=== PATIENT | male | born 1980 | race Caucasian/White ===

== ENCOUNTER 2019-02-07 20:55 | Inpatient (IN) | payer OTHER ==
[~2019-02-07] VITALS: Ht 185.4 cm; Wt 77.8 kg
[2019-02-07] MEDS ORDERED: NORC1TAB7 PO (21:49)
[2019-02-07] MEDS ORDERED: IBUP80TA PO (21:50)
[2019-02-07 21:52] LABS: BASO % 0.2 % (0.0-1.0); EOS # 0.2 10^3/uL (0.0-0.5); HEMATOCRIT 53.1 % (42.0-52.0); LYMPH # 2.4 10^3/uL (1.5-5.0); LYMPH % 13.5 % (24.0-44.0); MEAN CORPUSCULAR HEMOGLOBIN 31.5 pg (27.0-33.0); MEAN CORPUSCULAR HGB CONC 33.9 g/dl (32.0-36.5); MEAN CORPUSCULAR VOLUME 92.8 fl (80.0-96.0); MONO # 1.7 10^3/uL (0.0-0.8); MONO % 9.5 % (0.0-5.0); NEUTROPHILS # 13.6 10^3/uL (1.5-8.5); NEUTROPHILS % 75.2 % (36.0-66.0); PLATELET COUNT, AUTOMATED 316 10^3/uL (150-450); RED BLOOD COUNT 5.72 10^6/uL (4.30-6.10)
--- NOTE | 2019-02-07 22:18 | REPVR ---
PROCEDURE INFORMATION: Exam: XR Abdomen, 1 View Exam date and time: 02/07/2019 9:46 PM Age: 38 years old Clinical history: Other: Constipated. Vomiting; Prior surgery; Surgery date: <1 month; Additional info: No bm since 01/31, n/v TECHNIQUE: Imaging protocol: XR of the abdomen. Views: Frontal supine view of the abdomen. 1 View. COMPARISON: No relevant prior studies available. FINDINGS: Gastrointestinal tract: Minimal gas in the GI tract without abnormal dilatation. Mild stool scattered in the colon. Bones/joints: Unremarkable. Soft tissues: Minimal scattered metallic densities which may reflect ingested items, or foreign bodies or overlying artifact. IMPRESSION: Negative abdomen with minimal gas Electronically signed by: Alex Dean On 02/07/2019 22:18:26 PM
[2019-02-07 22:19] LABS: ALBUMIN 4.7 GM/DL (3.2-5.2); ALT/SGPT 49 U/L (12-78); BILIRUBIN,DIRECT 0.4 MG/DL (0.0-0.2); BLOOD UREA NITROGEN 20 MG/DL (7-18); CARBON DIOXIDE LEVEL 34 MEQ/L (21-32); CHLORIDE LEVEL 93 MEQ/L (98-107); CREATININE FOR GFR 1.02 MG/DL (0.70-1.30); GLOMERULAR FILTRATION RATE > 60.0 (>60); GLUCOSE, FASTING 113 MG/DL (70-100); LIPASE 408 U/L (73-393); POTASSIUM SERUM 3.9 MEQ/L (3.5-5.1); SODIUM LEVEL 134 MEQ/L (136-145); TOTAL PROTEIN 8.9 GM/DL (6.4-8.2)
[2019-02-07] MEDS ORDERED: NS 1,000 ML IV ONE (22:45)
[2019-02-07] MEDS ORDERED: ONDANSETRON 4MG/2ML VIAL (J2405) IV ONE (23:15)
[2019-02-07] MEDS ORDERED: ISOVUE-370 76% 100ML VIAL (Q9967) As Ordered ONE (23:20)
--- NOTE | 2019-02-08 00:17 | REPVR ---
PROCEDURE INFORMATION: Exam: CT Abdomen And Pelvis With Contrast Exam date and time: 02/07/2019 11:27 PM Age: 38 years old Clinical history: Abdominal pain; Generalized; Additional info: Diffuse abdominal pain, n/v, dec flatus TECHNIQUE: Imaging protocol: Computed tomography of the abdomen and pelvis with intravenous contrast. Radiation optimization: All CT scans at this facility use at least one of these dose optimization techniques: automated exposure control; mA and/or kV adjustment per patient size (includes targeted exams where dose is matched to clinical indication); or iterative reconstruction. Contrast material: ISOVUE 370; Contrast volume: 100 ml; Contrast route: IV; COMPARISON: CR Abdomen,Flat Plate KUB 02/07/2019 9:43 PM FINDINGS: Liver: The liver attenuation is 91 Hounsfield units and the spleen is 136 Hounsfield units. Gallbladder and bile ducts: Normal. No calcified stones. No ductal dilation. Pancreas: There is extension of the pancreatic head across the posterior aspect of the duodenal sweep with fluid or edema interposed between the cephalad pancreatic head and the proximal duodenum with some peripancreatic induration which may reflect peripancreatic edema, possibly groove pancreatitis. Spleen: Normal. No splenomegaly. Adrenals: Normal. No mass. Kidneys and ureters: Normal. No hydronephrosis. Stomach and bowel: Metallic density within the lumen of the descending colon consistent with ingested foreign body. Appendix: A normal appendix is seen. Intraperitoneal space: Unremarkable. No free air. No significant fluid collection. Vasculature: Unremarkable. No abdominal aortic aneurysm. Lymph nodes: Unremarkable. No enlarged lymph nodes. Bladder: Unremarkable as visualized. Reproductive: Unremarkable as visualized. Bones/joints: Unremarkable. No acute fracture. Soft tissues: Unremarkable. IMPRESSION: 1. 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 2. Edema or fluid interposed between the proximal duodenal sweep and pancreatic head with some edema around the duodenal sweep suggesting mild pancreatitis of the head, possibly groove pancreatitis. 3. Fatty infiltration of the liver. 4. Ingested metallic foreign body in the descending colon. Electronically signed by: Alex Dean On 02/08/2019 00:17:09 AM
[2019-02-08] MEDS ORDERED: METOCLOPRAMIDE INJ 10MG/2ML VIAL (J2765) IV ONE (00:45)
[2019-02-08 00:56] LABS: AMYLASE 112 U/L (25-115)
[2019-02-08] MEDS ORDERED: ONDANSETRON 4MG/2ML VIAL (J2405) IV PRN (01:30)
--- NOTE | 2019-02-08 01:47 | HPEPDOC ---
General Date of Admission 02/08/19 Date of Service: Feb 08, 2019 Chief Complaint The patient is a 38-year-old male admitted with a reason for visit of Vomiting. Source: Patient Exam Limitations: No limitations Timing/Duration: 24 hours Severity: Moderate Associated Symptoms: Nausea, Vomiting History of Present Illness Patient is 38 years old male without significant past medical history presented hospital with nausea, vomiting and abdominal pain. Patient stated that on 02/01/19 he had 19 teeth extraction for dentures. Also she stated that for past 36 hours history having nausea, vomiting associated with severe abdominal pain, left upper quadrant, 8 out of 10. After teeth extraction patient has been taken ibuprofen, metabolic and Percocet. In emergency room patient was found to have elevated lipase level, abdominal CT showed pancreatic inflammation. Also patient was found to have small foreign body in his bowel. Emergency PA contacted Dr. Gamez. . Home Medications Scheduled Ibuprofen (Ibuprofen) 800 Mg Tablet, 800 MG PO TID, (Reported) Scheduled PRN Hydrocodone/Acetaminophen ([place] 5-325 Tablet) 1 Each Tablet, 2 TAB PO Q6H PRN for pain, (Reported) Allergies Coded Allergies: No Known Allergies (Unverified , 02/07/19) Past Medical History Medical History Leishmaniasis Family History Father had prostate cancer Social History * Smoker: current smoker Alcohol: occationally Drugs: denies A-FIB/CHADSVASC A-FIB History Current/History of A-Fib/PAF?: No Current PO Anticoag Therapy: No Review of Systems Constitutional: Reports: Chills, Malaise, Weakness; Denies: Fever Eyes: Denies: Pain ENT: Denies: Head Aches Skin: Denies: Rash, Lesions Pulmonary: Denies: Cough Cardiovascular: Denies: Chest Pain, Palpitations Gastrointestinal: Reports: Nausea, Vomiting, Abdominal Pain, Constipation Genitourinary: Denies: Dysuria, Frequency Hematologic: Denies: Bruising, Bleeding Excessively Endocrine: Denies: Polydipsia, Polyphagia Musculoskeletal: Denies: Neck Pain, Back Pain Neurological: Denies: Weakness, Numbness Psych: Reports: Mood Normal Physical Examination General Exam: Positive: Alert, Cooperative Eye Exam: Positive: PERRLA ENT Exam: Positive: Mucous membr. moist/pink Neck Exam: Positive: Supple Chest Exam: Positive: Clear to auscultation Heart Exam: Positive: Rate Normal Telemetry: Positive: No significant arrhythmia Abdomen Exam: Positive: Normal bowel sounds Extremity Exam: Negative: Clubbing, Cyanosis Skin Exam: Positive: Nl turgor and temperature Neuro Exam: Positive: Normal Gait, Strength at 5/5 X4 ext, Cranial Nerves 3-12 NL Psych Exam: Positive: Mental status NL Vital Signs Vital Signs Date Time Temp Pulse Resp B/P (MAP) Pulse Ox O2 Delivery O2 Flow Rate FiO2 02/07/19 21:52 02/07/19 20:58 99.5 98 16 95 Room Air Laboratory Data Labs 24H Laboratory Tests 2 02/07/19 21:31: Immature Granulocyte % (Auto) 0.6, Neutrophils (%) (Auto) 75.2H, Lymphocytes (%) (Auto) 13.5L, Monocytes (%) (Auto) 9.5H, Eosinophils (%) (Auto) 1.0, Basophils (%) (Auto) 0.2, Neutrophils # (Auto) 13.6H, Lymphocytes # (Auto) 2.4, Monocytes # (Auto) 1.7H, Eosinophils # (Auto) 0.2, Basophils # (Auto) 0.0, Nucleated Red Blood Cells % (auto) 0.0, Urine Color YELLOW, Urine Appearance CLEAR, Urine pH 5.0, Urine Specific [place] 1.030, Urine Protein 1+H, Urine Glucose (UA) NEGATIVE, Urine Ketones 1+H, Urine Blood 1+H, Urine Nitrite NEGATIVE, Urine Bilirubin NEGATIVE, Urine Urobilinogen 0.2, Urine Leukocyte Esterase NEGATIVE, Urine WBC (Auto) 1, Urine RBC (Auto) 6H, Urine Hyaline Casts (Auto) 0, Urine Bacteria (Auto) 1+H, Urine Squamous Epithelial Cells 0, Urine Mucus (Auto) SMALL, Urine Sperm (Auto) , Anion Gap 7L, Glomerular Filtration Rate > 60.0, Calcium Level 10.0, Total Bilirubin 2.0H, Direct Bilirubin 0.4H, Aspartate Amino Transf (AST/SGOT) 13, Alanine Aminotransferase (ALT/SGPT) 49, Alkaline Phosphatase 94, Total Protein 8.9H, Albumin 4.7, Albumin/Globulin Ratio 1.12, Amylase Level 112, Lipase 408H 02/07/19 23:24: Lactic Acid Level 1.2 CBC/BMP Laboratory Tests 02/07/19 21:31 Microbiology Microbiology 02/07/19 Blood Culture, Received Pending 02/07/19 Blood Culture, Received Pending Assessment/Plan Patient is 38 years old male without significant past medical history presented hospital with nausea, vomiting and abdominal pain. Patient stated that on 02/01/19 he had 19 teeth extraction for dentures. Also she stated that for past 36 hours history having nausea, vomiting associated with severe abdominal pain, left upper quadrant, 8 out of 10. After teeth extraction patient has been taken ibuprofen, metabolic and Percocet. In emergency room patient was found to have elevated lipase level, abdominal CT showed pancreatic inflammation. Problems (1) Pancreatitis Status: Acute Problem Text: Most likely secondary to ibuprofen Aggressive IV fluid Nothing by mouth for now Pain management (2) Nausea & vomiting Status: Acute Problem Text: Zofran IV when necessary (3) Foreign body in colon Status: Acute Problem Text: Most likely particle on the tooth crown Patient had recent 19 teeth extraction No signs of perforation on the CT scan or bowel obstruction Emergency PA contacted Dr. Gamez for consult. Abdomen on palpation soft, no rebound, mildly tender in the left upper quadrant. No acute abdomen Plan / VTE VTE Prophylaxis Ordered?: Yes DANITA CHRISTIANSON DO Feb 08, 2019 01:47
[2019-02-08] MEDS: NS 1,000 ML IV SCH ×3 (02:30→10:28)
[2019-02-08 04:40] VITALS: BP 134/78
[2019-02-08] MEDS: HEPARIN SOD (PORCINE) 5000 UNITS/ML VIAL SC SCH ×2 (09:00→20:25)
[2019-02-08] MEDS: METOCLOPRAMIDE INJ 10MG/2ML VIAL (J2765) IV PRN ×2 (10:27→17:05)
[2019-02-08] MEDS: LR 1,000 ML IV SCH ×3 (11:00→20:24)
--- NOTE | 2019-02-08 11:02 | IPNPDOC ---
Text Note Date of Service The patient was seen on 02/08/19. NOTE Subjective: Patient is seen at bedside, he has continued to have bilious vomiting overnight. He has not been able to eat or drink anything. He has IV fluids running. He states that he feels better than yesterday, and he describes his abdominal pain is more crampy in nature. He did not use any morphine overnight. Zofran does not work for his nausea. Objective: Vitals: see below General: Ill-appearing male, lying in the bed HEENT: Atraumatic, normocephalic. Anicteric sclera. Mucous membranes are moist, patient does not have any teeth Neck: Supple, no JVD Lungs: Clear to auscultation bilaterally; no wheezes, rhonchi, or rales Heart: Regular rate and rhythm; no murmurs, polyps, or rubs Abdomen: Hyperactive bowel sounds in all 4 quadrants, soft, nondistended, mildly uncomfortable to palpation, no masses Extremities: No clubbing cyanosis or edema Skin: Sallow, no rashes, no jaundice Neuro: Moving all extremities freely, muscle strength 5 out of 5 throughout, sensation intact throughout, cranial nerves II through XII grossly intact Psych: Answering questions appropriately, tired Assessment: 38-year-old male on hospital day #2, admitted for acute pancreatitis with unknown etiology. Plan: 1. Acute Pancreatitis. Etiology unknown at this time, upon further discussion it was elicited that the patient was also given steroids by his dentist when his teeth were extracted. Patient has not had alcohol recently, denies history of trauma, no gallstones evident on CT scan nor has he had a recent ERCP. He has no history of malignancy or autoimmune conditions. Calcium within normal limits, will draw lipid profile to assess for hypertriglyceridemia. The admitting phys ician attributed it to ibuprofen usage, however steroid usage may be more likely. We'll continue with IV fluids, patient has a clear liquids diet. We'll advance him slowly and make sure that he can tolerate that before discontinuing IV fluids. Normal saline replaced with lactated Ringer's as evident shows this to be superior to treatment of pancreatitis. 2. Nausea and vomiting. He does not find Zofran to be very beneficial, will try Reglan. Continue IV fluids until able to tolerate by mouth intake. 3. Foreign body in bowel. CT scan reviewed with Dr. Gamez. Likely is a metallic filling from when the patient's teeth were extracted. It is nonobstructing, does not require surgery at this time. Disposition: Pending clinical improvement VS,Megan, I+O VS, Megan, I+O Laboratory Tests 02/07/19 21:31 Vital Signs Date Time Temp Pulse Resp B/P (MAP) Pulse Ox O2 Delivery O2 Flow Rate FiO2 02/08/19 04:40 99.0 77 16 134/78 (96) 98 Room Air I&O- Last 24 Hours up to 6 AM 02/08/19 06:00 Intake Total 1020 ml Output Total 150 ml Balance 870 ml GME ATTESTATION GME ATTESTATION My faculty preceptor for this patient encounter was physically present during th e encounter and was fully available. All aspects of the patient interview, examination, medical decision making process, and medical care plan development were reviewed and approved by the faculty preceptor. The faculty preceptor is aware and concurs with the plan as stated in the body of this note and will attest to such by his/her cosignature. ATTENDING NOTE I have personally evaluated and examined the patient. Discussed with residents and student regarding plan of care and agree with the above assessment and plan. EDGAR GRANT D.O. Feb 08, 2019 11:02 DARRYL PARK MD Feb 08, 2019 13:38
[2019-02-08 11:38] LABS: CHOLESTEROL RISK RATIO 5.625 (<5)
--- NOTE | 2019-02-08 12:35 | CR ---
DATE OF CONSULTATION: 02/08/2019 BRIEF HISTORY OF PRESENT ILLNESS: The patient is a 38-year-old male, who presented with some teeth extraction about a week ago and after being on some steroids for the last day and a half noticed some increasing pressure in his abdomen, nausea, vomiting and severe abdominal pain. He states mostly his discomfort today is really just pressure. He has been on some ibuprofen but also has been on what sounds like was some steroids, probably methylprednisolone, and some Percocet for his discomfort. He had evidence of peripancreatic inflammation and lipase elevation consistent with pancreatitis. He has not had previous pancreatitis. His past medical history is significant for history of leishmaniasis. Medications include ibuprofen and pain medication. Physical exam reveals a 38-year-old male who looks stated age. HEENT is unremarkable. Neck supple without adenopathy. Lungs are clear to auscultation without crackles, wheezes or rhonchi. Heart is regular without murmur. Abdomen is soft, mild discomfort in the epigastric area with palpation but really no guarding, no rebound. No peritoneal signs. Truly no significant impressive abdominal exam at this time. His white count is elevated. His lipase was elevated and evidence of peripancreatic inflammation associated with pancreatitis. IMPRESSION/PLAN: The patient has pancreatitis. I anticipate this is probably medication associated, and unfortunately, these seem to be a little bit slower to resolve from a pancreatitis standpoint anecdotally speaking. Thus, at this point supportive care obviously is the next most important treatment. There is good perfusion to the pancreas and I do not feel it is necrotic pancreatitis and supportive care is reasonable, and as soon as he is not nauseated I would recommend starting him on some clear liquids. From a surgical standpoint, no surgical intervention is necessary. He does have some possible additional pancreatic tissue in the head of the pancreas. At some point in the future once his pancreatitis has resolved, if workup is desired, he can see gastroenterology for this and possibly undergo an MRI, but otherwise from a surgical standpoint no further intervention is necessary. Please contact me if you have any questions or concerns, but otherwise, I will be signing off the patient's chart.
[2019-02-08 14:00] VITALS: BP 130/70
[2019-02-08 22:00] VITALS: BP 117/69
[2019-02-09] MEDS: LR 1,000 ML IV SCH ×4 (00:10→18:06)
[2019-02-09] MEDS: MORPHINE 2 MG/ML 1ML VIAL (J2270) IV PRN ×3 (00:15→21:25)
[2019-02-09] MEDS: METOCLOPRAMIDE INJ 10MG/2ML VIAL (J2765) IV PRN ×3 (03:48→18:32)
[2019-02-09 06:00] VITALS: BP 117/73
[2019-02-09 06:18] LABS: MEAN CORPUSCULAR HEMOGLOBIN 31.9 pg (27.0-33.0); MEAN CORPUSCULAR HGB CONC 34.9 g/dl (32.0-36.5); MEAN CORPUSCULAR VOLUME 91.4 fl (80.0-96.0); PLATELET COUNT, AUTOMATED 219 10^3/uL (150-450); RED BLOOD COUNT 4.05 10^6/uL (4.30-6.10); WHITE BLOOD COUNT 15.1 10^3/uL (4.0-10.0)
[2019-02-09 06:24] LABS: HEMOGLOBIN 12.9 g/dl (13.5-17.5)
[2019-02-09 06:41] LABS: BLOOD UREA NITROGEN 10 MG/DL (7-18); CALCIUM LEVEL 8.1 MG/DL (8.5-10.1); CARBON DIOXIDE LEVEL 26 MEQ/L (21-32); CHLORIDE LEVEL 103 MEQ/L (98-107); CREATININE FOR GFR 0.57 MG/DL (0.70-1.30); GLOMERULAR FILTRATION RATE > 60.0 (>60); GLUCOSE, FASTING 89 MG/DL (70-100); MAGNESIUM LEVEL 1.9 MG/DL (1.8-2.4); POTASSIUM SERUM 3.8 MEQ/L (3.5-5.1); SODIUM LEVEL 137 MEQ/L (136-145); TRIGLYCERIDES LEVEL 103 MG/DL (<150)
[2019-02-09] MEDS: HEPARIN SOD (PORCINE) 5000 UNITS/ML VIAL SC SCH ×2 (08:07→20:55)
--- NOTE | 2019-02-09 08:44 | IPNPDOC ---
Text Note Date of Service The patient was seen on 02/09/19. NOTE Subjective: Patient is seen at bedside, he has continued to 2 episodes of vomiting overnight. He has not been able to eat or drink anything, he would like to try to see if he can tolerate clears this morning. He has IV fluids running. He had to use IV morphine once last night due to his abdominal pain. He is able to urinate without difficulty. Reglan seems to work better than Zofran did for his nausea. Objective: Vitals: see below General: Tired-appearing male, lying in the bed HEENT: Atraumatic, normocephalic. Anicteric sclera. Mucous membranes are moist, patient does not have any teeth Neck: Supple, no JVD Lungs: Clear to auscultation bilaterally; no wheezes, rhonchi, or rales Heart: Regular rate and rhythm; no murmurs, polyps, or rubs Abdomen: Normoactive bowel sounds in all 4 quadrants, soft, nondistended, mildly uncomfortable to palpation in the left upper quadrant, no masses Extremities: No clubbing cyanosis or edema Skin: Sallow, no rashes, no jaundice Neuro: Moving all extremities freely, muscle strength 5 out of 5 throughout, sensation intact throughout, cranial nerves II through XII grossly intact Psych: Answering questions appropriately, tired Assessment: 38-year-old male on hospital day #3, admitted for acute pancreatitis with unknown etiology. Plan: 1. Acute Pancreatitis. Etiology unknown at this time, upon further discussion it was elicited that the patient was also given steroids by his dentist when his teeth were extracted. Patient has not had alcohol recently, denies history of trauma, no gallstones evident on CT scan nor has he had a recent ERCP. He has no history of malignancy or autoimmune conditions. Calcium within normal limits, lipid panel did not show hypertriglyceridemia. Agree with Dr. Gamez that steroid usage may be the most likely etiology, however cannot rule out idiopathic. We'll continue with IV maintenance fluids at 80 mls/hour, patient has a clear liquids diet. We'll advance him slowly and make sure that he can tolerate that before discontinuing IV fluids completely. Normal saline replaced with lactated Ringer's as evident shows this to be superior to treatment of pancreatitis. 2. Nausea and vomiting. Regular working better than Zofran did. Continue IV maintenance fluids until able to tolerate by mouth intake. 3. Foreign body in bowel. CT scan reviewed with Dr. Gamez. Likely is a metallic filling from when the patient's teeth were extracted. It is nonobstructing, does not require surgery at this time. Disposition: Pending clinical improvement, ability to tolerate regular diet VS,Fishbone, I+O VS, Fishbone, I+O Laboratory Tests 02/09/19 05:43 Vital Signs Date Time Temp Pulse Resp B/P (MAP) Pulse Ox O2 Delivery O2 Flow Rate FiO2 02/09/19 06:00 98.2 73 18 117/73 (88) 98 Room Air I&O- Last 24 Hours up to 6 AM 02/09/19 06:00 Intake Total 3000 ml Output Total 250 ml Balance 2750 ml GME ATTESTATION GME ATTESTATION My faculty preceptor for this patient encounter was physically present during the encounter and was fully available. All aspects of the patient interview, examination, medical decision making process, and medical care plan development were reviewed and approved by the faculty preceptor. The faculty preceptor is aware and concurs with the plan as stated in the body of this note and will attest to such by his/her cosignature. ATTENDING NOTE I have personally evaluated and examined the patient. Discussed with residents and student regarding plan of care and agree with the above assessment and plan. EDGAR GRANT D.O. Feb 09, 2019 08:44 DARRYL PARK MD Feb 09, 2019 10:17
[2019-02-09 14:00] VITALS: BP 135/80
[2019-02-09 22:00] VITALS: BP 113/79
[2019-02-10] MEDS: METOCLOPRAMIDE INJ 10MG/2ML VIAL (J2765) IV PRN (00:55)
[2019-02-10] MEDS: LR 1,000 ML IV SCH (05:44)
[2019-02-10 06:00] VITALS: BP 113/82
[2019-02-10] MEDS: HEPARIN SOD (PORCINE) 5000 UNITS/ML VIAL SC SCH ×2 (07:48→21:00)
[2019-02-10] MEDS: MORPHINE 2 MG/ML 1ML VIAL (J2270) IV PRN (08:21)
--- NOTE | 2019-02-10 10:37 | IPNPDOC ---
Text Note Date of Service The patient was seen on 02/10/19. NOTE Subjective: Patient is seen at bedside, no episodes of vomiting overnight. He was been able to tolerate clear liquids yesterday in small amounts, he would like to try to see if he can tolerate full liquids at lunch. He has IV fluids running. He has been using IV morphine sparingly due to his abdominal pain, which continues to radiate to the middle of his back. He is able to urinate without difficulty. Reglan works better than Zofran did for his nausea. Objective: Vitals: see below General: Tired-appearing male, lying in the bed HEENT: Atraumatic, normocephalic. Anicteric sclera. Mucous membranes are moist, patient does not have any teeth Neck: Supple, no JVD Lungs: Clear to auscultation bilaterally; no wheezes, rhonchi, or rales Heart: Regular rate and rhythm; no murmurs, gallops, or rubs Abdomen: Normoactive bowel sounds in all 4 quadrants, soft, nondistended, mildly uncomfortable to palpation in the left upper quadrant, no masses Extremities: No clubbing cyanosis or edema Skin: No rashes, no jaundice Neuro: Moving all extremities freely, muscle strength 5 out of 5 throughout, sensation intact throughout, cranial nerves II through XII grossly intact Psych: Answering questions appropriately, tired Assessment: 38-year-old male on hospital day #4, admitted for acute pancreatitis with unknown etiology. Plan: 1. Acute Pancreatitis. Etiology unknown at this time, upon further discussion it was elicited that the patient was also given steroids by his dentist when his teeth were extracted. Patient has not had alcohol recently, denies history of trauma, no gallstones evident on CT scan nor has he had a recent ERCP. He has no history of malignancy or autoimmune conditions. Calcium within normal limits, lipid panel did not show hypertriglyceridemia. Agree with Dr. Gamez that steroid usage may be the most likely etiology, however cannot rule out idiopathic. We'll continue with IV maintenance fluids at 80 mls/hour, patient has tolerated a clear liquids diet. Will try to advance him to full liquids at lunch. We'll make sure he can tolerate a diet before discontinuing IV fluids completely. Normal saline replaced with lactated Ringer's as evident shows this to be superior to treatment of pancreatitis. He is slowly improving, but may need an extended stay. 2. Nausea and vomiting. Reglan working better than Zofran did. Continue IV maintenance fluids until able to tolerate by mouth intake. 3. Foreign body in bowel. CT scan reviewed with Dr. Gamez. Likely is a metallic filling from when the patient's teeth were extracted. It is nonobstructing, does not require surgery at this time. Disposition: Pending clinical improvement, ability to tolerate regular diet VS,Fishbone, I+O VS, Fishbone, I+O Vital Signs Date Time Temp Pulse Resp B/P (MAP) Pulse Ox O2 Delivery O2 Flow Rate FiO2 02/10/19 08:31 18 02/10/19 06:00 98.8 82 113/82 (92) 97 Room Air I&O- Last 24 Hours up to 6 AM 02/10/19 06:00 Intake Total 3690 ml Output Total 2615 ml Balance 1075 ml GME ATTESTATION GME ATTESTATION My faculty preceptor for this patient encounter was physically present during the encounter and was fully available. All aspects of the patient interview, exa mination, medical decision making process, and medical care plan development were reviewed and approved by the faculty preceptor. The faculty preceptor is aware and concurs with the plan as stated in the body of this note and will attest to such by his/her cosignature. ATTENDING NOTE I have personally evaluated and examined the patient. Discussed with residents and student regarding plan of care and agree with the above assessment and plan. EDGAR GRANT D.O. Feb 10, 2019 10:37 DARRYL PARK MD Feb 10, 2019 14:35
[2019-02-10] MEDS ORDERED: SENNA 8.6 MG TAB (SENOKOT) PO PRN (12:00)
[2019-02-10] MEDS ORDERED: DOCUSATE SODIUM 100 MG CAP PO PRN (12:00)
[2019-02-10 14:00] VITALS: BP 120/88
[2019-02-10 22:00] VITALS: BP 111/78
[2019-02-10] MEDS ORDERED: ACETAMINOPHEN TAB 650MG DOSE (2X325MG) PO PRN (22:00)
[2019-02-11] MEDS: METOCLOPRAMIDE INJ 10MG/2ML VIAL (J2765) IV PRN (00:17)
[2019-02-11 05:59] LABS: HEMATOCRIT 40.3 % (42.0-52.0); HEMOGLOBIN 14.2 g/dl (13.5-17.5); MEAN CORPUSCULAR HEMOGLOBIN 31.7 pg (27.0-33.0); MEAN CORPUSCULAR HGB CONC 35.2 g/dl (32.0-36.5); PLATELET COUNT, AUTOMATED 256 10^3/uL (150-450); RED BLOOD COUNT 4.48 10^6/uL (4.30-6.10); WHITE BLOOD COUNT 13.4 10^3/uL (4.0-10.0)
[2019-02-11 06:00] VITALS: BP 112/70
[2019-02-11 06:27] LABS: ALBUMIN 3.5 GM/DL (3.2-5.2); ALT/SGPT 34 U/L (12-78); BILIRUBIN,TOTAL 1.7 MG/DL (0.2-1.0); BLOOD UREA NITROGEN 8 MG/DL (7-18); CALCIUM LEVEL 9.2 MG/DL (8.5-10.1); CARBON DIOXIDE LEVEL 29 MEQ/L (21-32); CHLORIDE LEVEL 98 MEQ/L (98-107); CREATININE FOR GFR 0.67 MG/DL (0.70-1.30); GLOMERULAR FILTRATION RATE > 60.0 (>60); GLUCOSE, FASTING 92 MG/DL (70-100); POTASSIUM SERUM 3.6 MEQ/L (3.5-5.1); SODIUM LEVEL 136 MEQ/L (136-145); TOTAL PROTEIN 6.5 GM/DL (6.4-8.2)
[2019-02-11] MEDS: HEPARIN SOD (PORCINE) 5000 UNITS/ML VIAL SC SCH (07:52)
--- NOTE | 2019-02-11 11:08 | DSES ---
DATE OF ADMISSION: 02/07/2019 DATE OF DISCHARGE: 02/11/2019 DISCHARGE DIAGNOSIS: 1. Acute pancreatitis. 2. Nausea and vomiting. 3. Foreign body in bowel. CONSULTANTS: Dr. Gamez from general surgery. PROCEDURES: None. HOSPITAL COURSE: This is a 38-year-old male with no real past significant medical history who presented to the hospital on 02/08/2018 with nausea, vomiting, abdominal pain. He stated that on 02/01/2019 he had 19 teeth extracted for dentures due to chronic gingivitis, loose teeth, and rotting of his enamel. When he presented to the emergency department he had been complaining of 36 hours of nausea and vomiting associated with severe abdominal pain in the left upper quadrant and epigastric area which she rated as an 8/10. He has been managing his pain at home with some Motrin and Percocet. In the emergency department he was found to have elevated lipase level and abdominal CT showed pancreatic inflammation as well as a small metallic looking foreign body in his descending colon. He was admitted to the med surg floor for pancreatitis and was given aggressive IV fluids as well as pain management. Dr. Gamez was consulted and the foreign body was felt to be a metallic filling from the patient teeth when they were extracted. It was nonobstructing and it was felt to not need surgery. Zofran was changed to Reglan as the Zofran did not help the patient. Over his hospital stay he continued to improve and on day of discharge was meeting all discharge criteria, easting a soft diet which is what he would be eating at home. PHYSICAL EXAMINATION: Vitals: Temperature 99.2, pulse 74 and regular, respiratory rate 17, blood pressure 112/70, 95% on room air. General: Middle-aged male appearing older than stated age lying in the bed. He is alert and much more lively than he has been. HEENT: Atraumatic, normocephalic. Anicteric sclera. Mucous membranes are moist. The patient is edentulous. Neck: Supple, no JVD. No masses. Lungs: Clear to auscultation bilaterally. No wheezes, rhonchi or rales. Heart: Regular rate and rhythm. No murmurs, gallops or rubs. Abdomen: Normoactive bowel sounds in all four quadrants. Soft, nondistended. No pain to palpation in all four quadrants. No masses palpable. Extremities: No clubbing, cyanosis or edema. Skin: No rashes or jaundice. Neuro: Moving all extremities freely. Muscle strength 5/5 throughout. Sensation intact throughout. Cranial nerves II-XII grossly intact. Psych: Answering questions appropriately. Full affect. LABORATORY DATA: CBC: WBC 13.4, hemoglobin 14.2, hematocrit 40.3, platelets 256. Chemistry: Sodium 136, potassium 3.6, chloride 98, carbon dioxide 29, BUN 8, creatinine 0.67, fasting glucose 92, calcium 9.2, total bili 1.7 (which is decreasing), AST 11, ALT 34, alkaline phosphatase 63, total protein 6.5, albumin 3.5. Micro: Blood cultures times two negative. IMAGING STUDIES: Abdominal x-ray done 02/07/2019 shows a negative abdomen with minimal gas. CT of the abdomen and pelvis with IV contrast showed extension of the pancreatic head posterior to the duodenal sweep. Edema +4 was interposed between the proximal duodenal sweep and pancreatic head with some edema around the duodenal sweep suggesting mild pancreatitis of the head fatty infiltration of the liver and ingested a metallic foreign body in the descending colon. DISCHARGE MEDICATIONS: None. FOLLOWUP: Followup with his dentist on Wednesday, he should continue the soft mechanical diet. With [facility] within the next week, he will call the Medical [facility] on Wednesday. DISPOSITION: Stable. Time spent on discharge was 35 minutes. ATTENDING ATTESTATION: I have personally evaluated and examined the patient. Discussed with resident regarding plan of care and agree with the above assessment and discharge plan. SULTANA
== END 2019-02-11 13:39 | disposition home or self-care (01) | DRG 440 ==
LOC: M ED 20:55 → M ED INP 02-08 01:27 → M MSPAV 02-08 04:40
PROVIDERS: ADMIT Internal Medicine; ATTEND Student in an Organized Health Care Education/Training Program
DX: K85.90 Acute pancreatitis without necrosis or infection, unspecified (principal); Z18.12 Retained nonmagnetic metal fragments